=== PATIENT | female | born 1985 | race American Indian/Alaskan Native ===

== ENCOUNTER 2019-02-07 20:46 | Emergency (ER) | payer SELFPAY ==
--- NOTE | 2019-02-07 21:02 | Emergency Department Report ---
Blank Doc - Documentation Documentation: this is a 33-year-old female that presents with bilateral earache and cough x3 weeks. This initial assessment/diagnostic orders/clinical plan/treatment(s) is/are subject to change based on patient's health status, clinical progression and re- assessment by fellow clinical providers in the ED. Further treatment and workup at subsequent clinical providers discretion. Patient/guardians urged not to elope from the ED as their condition may be serious if not clinically assessed and managed. Initial orders include: 1- Patient sent to [facility] for further evaluation and treatment 2- xray
--- NOTE | 2019-02-07 23:06 | XRay Report ---
PROCEDURE: XR CHEST ROUTINE 2V TECHNIQUE: PA and lateral chest radiographs were obtained. HISTORY: cough COMPARISONS: None. FINDINGS: Heart: Normal. Mediastinum/Vessels: Normal. Lungs/Pleural space: There is wedge-shaped opacity in the right middle lobe distribution suspicious f or infiltrate Bony thorax: Mild scoliosis of the lumbar spine noted. IMPRESSION: Suspect right middle lobe infiltrate which may reflect pneumonia This document is electronically signed by Santiago Watson MD., Feb 07 2019 11:04:06 PM ET
--- NOTE | 2019-02-08 00:39 | Emergency Department Report ---
- General Chief Complaint: Upper Respiratory Infection Stated Complaint: CLOGGED EARS COUGH Time Seen by Provider: 02/07/19 21:01 Source: patient Mode of arrival: Ambulatory Limitations: No Limitations - History of Present Illness MD Complaint: cough, rhinorrhea, nasal congestion (and bilateral ear pressure) -: Gradual, days(s) (often the last couple weeks) Severity: moderate Quality: dull Consistency: constant Improves With: nothing Worsens With: nothing Associated Symptoms: chills, myalgias, headache, rhinorrhea, nasal congestion, cough, nausea, ear pain. denies: confusion, right sweats, weight loss, hoarseness - Related Data Previous Rx's Medication Instructions Recorded Last Taken Type Amoxicillin/Potassium Clav 1 each PO BID #20 tablet 02/08/19 Unknown Rx [Augmentin 875-125 Tablet] Allergies Allergy/AdvReac Type Severity Reaction Status Date / Time No Known Allergies Allergy Unverified 02/07/19 21:05 ED Review of Systems ROS: Stated complaint: CLOGGED EARS COUGH Other details as noted in HPI Constitutional: denies: chills, fever Eyes: denies: eye pain, eye discharge, vision change ENT: ear pain, congestion. denies: throat pain Respiratory: denies: cough, shortness of breath, wheezing Cardiovascular: denies: chest pain, palpitations Endocrine: no symptoms reported Gastrointestinal: denies: abdominal pain, nausea, diarrhea Genitourinary: denies: urgency, dysuria, discharge Musculoskeletal: denies: back pain, joint swelling, arthralgia Skin: denies: rash, lesions Neurological: denies: headache, weakness, paresthesias Psychiatric: denies: anxiety, depression Hematological/Lymphatic: denies: easy bleeding, easy bruising ED Past Medical Hx - Past Medical History Additional medical history: LUPUS - Social History Smoking Status: Never Smoker Substance Use Type: None - Medications Home Medications: Home Medications Medication Instructions Recorded Confirmed Last Taken Type Amoxicillin/Potassium Clav 1 each PO BID #20 tablet 02/08/19 Unknown Rx [Augmentin 875-125 Tablet] ED Physical Exam - General Limitations: No Limitations General appearance: alert, in no apparent distress - Head Head exam: Present: atraumatic, normocephalic - Eye Eye exam: Present: normal appearance - ENT ENT exam: Present: mucous membranes moist, other (the bilateral ears are injected with, with more injection to the left as compared to the right. The tympanic membrane is bulging with an effusion to the left ear as well. There is cloudiness noted. Scarring to the eardrum. Ear canal is patent, no abrasions, swelling or other deformities noted.) - Neck Neck exam: Present: normal inspection - Respiratory Respiratory exam: Present: normal lung sounds bilaterally. Absent: respiratory distress - Cardiovascular Cardiovascular Exam: Present: regular rate, normal rhythm. Absent: systolic murmur, diastolic murmur, rubs, gallop - GI/Abdominal GI/Abdominal exam: Present: soft, normal bowel sounds - Extremities Exam Extremities exam: Present: normal inspection - Back Exam Back exam: Present: normal inspection - Neurological Exam Neurological exam: Present: alert, oriented X3 - Psychiatric Psychiatric exam: Present: normal affect, normal mood - Skin Skin exam: Present: warm, dry, intact, normal color. Absent: rash Critical care attestation.: If time is entered above; I have spent that time in minutes in the direct care of this critically ill patient, excluding procedure time. ED Disposition Clinical Impression: Otitis media, Nasal congestion Disposition: DC-01 TO HOME OR SELFCARE Is pt being admited?: No Does the pt Need Aspirin: No Condition: Stable Instructions: Otitis Media (ED), Pseudoephedrine (By mouth), Decongestant/Expectorant (By mouth) Referrals: CAROLYN REEVES MD [Primary Care Provider] - 3-5 Days [facility] [Provider Group] - 3-5 Days
== END 2019-02-08 01:05 | disposition home or self-care (01) ==
LOC: ED 20:46
DX: H66.93 Otitis media, unspecified, bilateral (principal); R05 Cough; R09.81 Nasal congestion
CPT/HCPCS: 71046

== ENCOUNTER 2019-04-01 15:58 | Emergency (ER) | payer OTHER ==
--- NOTE | 2019-04-01 16:11 | Event Note ---
ED Screening Note Date of service: 04/01/19 Time: 16:09 ED Screening Note: This is a 34 y.o. F. that presents to the ER with bilateral otalgia x 1 month. Patient seen 1 month ago and continue to have pain and clogged sensation bilaterally. Patient reports increasing pain to right ear with discharge. PMH of lupus This initial assessment/diagnostic orders/clinical plan/treatment(s) is/are subject to change based on patients health status, clinical progression and re- assessment by fellow clinical providers in the ED. Further treatment and workup at subsequent clinical providers discretion. Patient/guardian urged not to elope from the ED as their condition may be serious if not clinically assessed and managed. Initial orders include: [facility] for further evaluation.
--- NOTE | 2019-04-01 20:17 | Emergency Department Report ---
ED General Adult HPI - General Chief complaint: Earache Stated complaint: EAR PAIN Time Seen by Provider: 04/01/19 16:09 Source: patient Mode of arrival: Ambulatory Limitations: No Limitations - History of Present Illness Initial comments: Patient is a 34-year-old -[place] female with a history of SLE who presents to the ED, and persistent bilateral ear pain. Purulent discharge for the last 1 month. Patient states that the effusion and decide what was in the last 2 days. Patient also complains of nasal and sinus congestion and pressure for the last 1 week. Patient states that she has previously been prescribed Augmentin which she took for 10 days but did not get any relief. Patient denies hearing loss, dizziness, nausea, vomiting, headache, chest pain, shortness of breath, fever, chills, sore throat, abdominal pain or dysphagia and change in vision. MD Complaint: Bilateral ear pain; Nasal and sinus congestion -: Gradual, month(s) (1) Location: face (bilateral ears) Radiation: non-radiation Severity scale (0 -10): 5 Quality: aching, sharp Consistency: constant Improves with: none Worsens with: none Associated Symptoms: denies other symptoms, cough. denies: confusion, chest pain, fever/chills, headaches, loss of appetite, malaise, nausea/vomiting, rash, seizure, shortness of breath, syncope, weakness Treatments Prior to Arrival: none - Related Data Previous Rx's Medication Instructions Recorded Last Taken Type Amoxicillin/Potassium Clav 1 each PO BID #20 tablet 02/08/19 Unknown Rx [Augmentin 875-125 Tablet] Clindamycin [Clindamycin CAP] 300 mg PO Q6HR #80 capsule 04/01/19 Unknown Rx Ibuprofen [Motrin] 600 mg PO Q8H PRN #20 tablet 04/01/19 Unknown Rx Ofloxacin 0.3% [Floxin 0.3% Otic] 3 drops OT Q6H #10 ml 04/01/19 Unknown Rx Allergies Allergy/AdvReac Type Severity Reaction Status Date / Time No Known Allergies Allergy Unverified 02/07/19 21:05 ED Review of Systems ROS: Stated complaint: EAR PAIN Other details as noted in HPI Constitutional: denies: chills, fever Eyes: denies: eye pain, eye discharge, vision change ENT: ear pain (bilateral), congestion. denies: throat pain Respiratory: cough. denies: orthopnea, shortness of breath, SOB with exertion, SOB at rest, wheezing Cardiovascular: denies: chest pain, palpitations Endocrine: no symptoms reported Gastrointestinal: denies: abdominal pain, nausea, diarrhea Genitourinary: denies: urgency, dysuria, discharge Musculoskeletal: denies: back pain, joint swelling, arthralgia Skin: denies: rash, lesions Neurological: denies: headache, weakness, paresthesias Psychiatric: denies: anxiety, depression Hematological/Lymphatic: denies: easy bleeding, easy bruising ED Past Medical Hx - Past Medical History Additional medical history: LUPUS - Surgical History Additional Surgical History: hips replacement bilaterally - Social History Smoking Status: Never Smoker Substance Use Type: None - Medications Home Medications: Home Medications Medication Instructions Recorded Confirmed Last Taken Type Amoxicillin/Potassium Clav 1 each PO BID #20 tablet 02/08/19 Unknown Rx [Augmentin 875-125 Tablet] Clindamycin [Clindamycin CAP] 300 mg PO Q6HR #80 capsule 04/01/19 Unknown Rx Ibuprofen [Motrin] 600 mg PO Q8H PRN #20 tablet 04/01/19 Unknown Rx Ofloxacin 0.3% [Floxin 0.3% Otic] 3 drops OT Q6H #10 ml 04/01/19 Unknown Rx ED Physical Exam - General Limitations: No Limitations General appearance: alert, in no apparent distress - Head Head exam: Present: atraumatic, normocephalic, normal inspection - Eye Eye exam: Present: normal appearance, PERRL, EOMI. Absent: scleral icterus Pupils: Present: normal accommodation - ENT ENT exam: Present: normal exam, mucous membranes moist, other (Bilateral erythematous tympanic membranes with purulent discharge; grossly congested nasal passages) - Neck Neck exam: Present: normal inspection, full ROM. Absent: tenderness, lymphadenopathy - Respiratory Respiratory exam: Present: normal lung sounds bilaterally. Absent: respiratory distress, wheezes, rales, rhonchi, decreased breath sounds - Cardiovascular Cardiovascular Exam: Present: regular rate, normal rhythm, normal heart sounds. Absent: systolic murmur, diastolic murmur, rubs, gallop - GI/Abdominal GI/Abdominal exam: Present: soft, normal bowel sounds. Absent: distended, guarding, rebound, hyperactive bowel sounds, hypoactive bowel sounds, organomegaly - Rectal Rectal exam: Present: deferred - Extremities Exam Extremities exam: Present: normal inspection, full ROM, normal capillary refill - Back Exam Back exam: Present: normal inspection, full ROM. Absent: tenderness, CVA tenderness (L), paraspinal tenderness, vertebral tenderness - Neurological Exam Neurological exam: Present: alert, oriented X3, CN II-XII intact, normal gait, reflexes normal - Psychiatric Psychiatric exam: Present: normal affect, normal mood - Skin Skin exam: Present: warm, dry, intact, normal color. Absent: rash ED Course Vital Signs 04/01/19 16:09 Temperature 98 F Pulse Rate 96 H Respiratory 18 Rate Blood Pressure 157/89 O2 Sat by Pulse 100 Oximetry - Reevaluation(s) Reevaluation #1: 04/01/19 20:22 Patient is alert and oriented 3 and is not in distress. Patient was discharged home on antibiotics eardrops as well as oral antibiotics and pain medications, and advised to follow-up with her primary care physician in 7-10 days for reevaluation or return to the ED immediately if symptoms get worse. ED Medical Decision Making - Medical Decision Making Patient is alert and oriented 3 and is not in distress. Patient was discharged home on antibiotics eardrops as well as oral antibiotics and pain medications, and advised to follow-up with her primary care physician in 7-10 days for reevaluation or return to the ED immediately if symptoms get worse. - Differential Diagnosis acute otitis media; acute URI Critical care attestation.: If time is entered above; I have spent that time in minutes in the direct care of this critically ill patient, excluding procedure time. ED Disposition Clinical Impression: Acute otitis media with effusion of both ears Disposition: - TO HOME OR SELFCARE Is pt being admited?: No Does the pt Need Aspirin: No Condition: Stable Instructions: Otitis Media (ED) Additional Instructions: Take medications with food, drink plenty of fluids and follow up with your primary care physician in 7-10 days for reevaluation. Return to the ED immediately if symptoms get worse. Prescriptions: Clindamycin [Clindamycin CAP] 300 mg PO Q6HR #80 capsule Ofloxacin 0.3% [Floxin 0.3% Otic] 3 drops OT Q6H #10 ml Ibuprofen [Motrin] 600 mg PO Q8H PRN #20 tablet PRN Reason: Pain Referrals: NATASHA CHURCH MD [Primary Care Provider] - 3-5 Days Time of Disposition: 20:15 Print Language: GREENLAND[place]
[2019-04-01 20:49] VITALS: BP 111/79
== END 2019-04-01 20:49 | disposition home or self-care (01) ==
LOC: ED 15:58
DX: H65.193 Other acute nonsuppurative otitis media, bilateral (principal); M32.9 Systemic lupus erythematosus, unspecified; Z79.1 Long term (current) use of non-steroidal anti-inflammatories (NSAID); Z79.899 Other long term (current) drug therapy; Z96.643 Presence of artificial hip joint, bilateral
CPT/HCPCS: 99282